=== PATIENT | male | born 1945 | race Caucasian/White ===

== ENCOUNTER → 2017-09-26 | Outpatient (CLI) | payer MEDICARE, BC ==
--- NOTE | 2017-09-26 12:17 | XR ---
EXAMINATION TYPE: XR chest 2V DATE OF EXAM: 09/26/2017 COMPARISON: NONE TECHNIQUE: PA and lateral views submitted. HISTORY: MRI clearance FINDINGS: The lungs are clear and there is no pneumothorax, pleural effusion, or focal pneumonia. Hyperinflat ion suggests COPD. There is a 7 mm nodule in the right apex. Postsurgical change involving the sternum. Hypertrophic and degenerative change of the spine. No diagnostic evidence of epicardial lead. Surgical clips in the mediastinum noted. Arthropathy of th e shoulders noted. Hypertrophic change of the spine noted. Small hiatal hernia noted. IMPRESSION: 1. No evidence of epicardial lead. 2. Vague nodularity right upper lobe CT of the chest is recommended
== END | disposition home or self-care (01) ==
LOC: RADXRMAIN 11:03
PROVIDERS: ATTEND Orthopaedic Surgery Sports Medicine
DX: R91.8 Other nonspecific abnormal finding of lung field (principal); M43.16 Spondylolisthesis, lumbar region; M47.817 Spondylosis without myelopathy or radiculopathy, lumbosacral region; M51.36 Other intervertebral disc degeneration, lumbar region; Z79.01 Long term (current) use of anticoagulants; Z96.642 Presence of left artificial hip joint; Z85.038 Personal history of other malignant neoplasm of large intestine
CPT/HCPCS: 71046

== ENCOUNTER → 2022-06-11 | Outpatient (CLI) | payer MEDICARE, BC ==
[2022-06-11 14:35] VITALS: BP 129/73; PULSE 72; RESP 18; TEMP 98.3
--- NOTE | 2022-06-11 14:52 | P.PAINPG ---
PQRS Measure Charge Sheet Comment: HISTORY OF PRESENT ILLNESS: 76 yr old male as a referral from Dr. Hummel presents today w severe and chronic LBP secondary to for evaluation. Pt states his pain is currently at 5/10 in intensity, constant, L>R LBP, squeezing sore in character w radiation towards the BLEs, R>L. Pain is provoked by bending/twisting or walking for 10 min or more. Pain is alleviated w [address] [facility], massage integrated w PT, medications (ASA products, muscle relaxers), sitting upright, repositioning and rest. PMH: CAD, Colon CA, Hyperlipidemia, HTN, OA, Anxiety PSH: Colon CA resection, Cervical Disc Protrusions, Cardiac Cath (2008), Triple ByPass (2008), BL Carotid Endarectomies, L Hip Replacement, Colonoscopy, Tonsillectomy, BL Cataract Resection w Lens Implants, Vasectomy, Circumcision SH: Hx of 60 pack/ yr tobacco use. Hx of Heavy ETOH use. No illicit drug use. and lives w spouse. Drives. FH: Fa- unknown. Mo- in her 70s due to a fall. All: [place] Meds: See list REVIEW OF ORGAN SYSTEMS: CONSTITUTIONAL: No fevers or chills. No recent weight loss. NEUROLOGICAL: + numbness and tingling along the distal extremities. No seizure disorders or headaches. MUSCULOSKELETAL: + pain PSYCHIATRIC: Denies current depression or suicidal thoughts. Physical Examinations : Constitutional : Cooperative , not in acute distress . Neurologic : Cranial nerve II to XII intact. No focal neurological deficits. Psychiatric : alert & oriented x 3. Matching mood & appropriate affect. Judgment & insight intact. Musculoskeletal : Cervical Spine Motor strength in the deltoid and biceps: Normal right side. Normal Left side Motor strength biceps and the wrist extensors: Normal right side . Normal left side Motor strength in the triceps muscle: Normal right side. Normal left side Deep tendon reflexes: Normal at the biceps. Normal at Brachioradialis. Normal at triceps Vertebral body tenderness to deep palpation over Cervical facet loading test: positive bilaterally Spurling test: positive bilaterally Neck distraction test: positive bilaterally Huma sign: positive bilaterally Lumbar spine Motor strength lower extremities ,thigh and legs 5/5 Right side , 5/5 Left side Deep tendon reflexes : Normal Knee Jerk. Normal Ankle Jerk Vertebral body tenderness over L5 Lumbar facet Loading Test: positive Right / positive Left Range of motion of the lumbar spine Flexion 30 degrees, extension 10 degrees Straight Leg Raise test: Left/ Right positive at degree Luigi test: positive right / positive left. Severe tenderness over the Sacroiliac joint on the Right / Left sides Gaenslen test: positive bilaterally Seated flexion test: positive bilaterally. Sacral spine : Severe tenderness over the Sacroiliac joint: right side / left side Range of motion: Flexion of the lumbar spine <60 degrees Range of motion: Extension of the lumbar spine <20 degrees Gaenslen's Test positive Michael's Test positive Luigi test: positive right side / left side Thigh Thrust Test Sacral Thrust Test Imaging: MRI without contrast of the lubmar spine form 05/16/22 reviwed Assessment/ Plan : Lumbar DDD, Lumbar Spondylosis Recommendation of KAILASH L5-S1. May need a series of injections, up to 3 within a 6 mo period, for optimal pain relief. Risks, benefits of procedure discussed and patient verbalized understanding. Admits to aspirin or anti- coagulant use and denies medical history of diabetes. Protocol for discontinuation/ continuation of medications rubia procedure discussed. All questions answered. I have spent greater than 30 minutes on patient care today. Dr Benítez was available by phone for the evaluation of this patient. The time was used to review the medical records including relevant urine studies and Prescription history (MAPs), review of the available imaging, evaluation and examination of the patient, coordination of care with the medical staff and if applicable referring physicians, as well as creation of the medical record PQRS Narrative: Smoking Status Former smoker Home Medications: Ambulatory Orders Multivit-Min/FA/Lycopen/Lutein [Centrum Silver Tablet] 1 tab PO DAILY 08/04/15 Tamsulosin HCl [Flomax] 0.4 mg PO DAILY 08/04/15 traMADol HCL [Ultram] 100 mg PO Q6HR PRN 08/04/15 Aspirin EC [Ecotrin Low Dose] 81 mg PO DAILY #30 tablet. 08/11/15 Atorvastatin [Lipitor] 80 mg PO DAILY #30 tab 08/11/15 Budesonide/Formoterol Fumarate [Symbicort 80-4.5 Mcg Inhaler] 2 puff INHALATION BID #1 inhaler 08/11/15 Clopidogrel [Plavix] 75 mg PO DAILY #30 tab 08/11/15 Ipratropium-Albuterol Nebulize [Duoneb 0.5 mg-3 mg/3 ml Soln] 3 ml INHALATION RT-QID #1 neb 08/11/15 Metoprolol Tartrate [Lopressor] 50 mg PO BID #60 tab 08/11/15 Nitroglycerin Sl Tabs [Nitrostat] 0.4 mg SUBLINGUAL Q5M PRN #25 tab 08/11/15 amLODIPine [Norvasc] 5 mg PO DAILY #30 tab 08/11/15 Acetaminophen-Codeine 300-30mg [Tylenol #3] 1 each PO Q6H PRN #20 tablet 08/24/15 Orphenadrine [Norflex] 100 mg PO Q12H #20 tablet.er 08/24/15 Controlled Substance Measures - Controlled Substance Measures Is patient prescribed a controlled substance at discharge?: No
== END ==
LOC: PNWHC3 12:19
PROVIDERS: ATTEND Specialist
DX: M48.062 Spinal stenosis, lumbar region with neurogenic claudication (principal); M51.36 Other intervertebral disc degeneration, lumbar region; M47.816 Spondylosis without myelopathy or radiculopathy, lumbar region; I25.10 Atherosclerotic heart disease of native coronary artery without angina pectoris; E78.5 Hyperlipidemia, unspecified; I10 Essential (primary) hypertension; M19.90 Unspecified osteoarthritis, unspecified site; F41.9 Anxiety disorder, unspecified; Z87.891 Personal history of nicotine dependence; Z88.5 Allergy status to narcotic agent
CPT/HCPCS: 99211

== ENCOUNTER → 2022-06-27 | Outpatient (CLI) | payer MEDICARE, BC ==
--- NOTE | 2022-06-27 14:41 | CT ---
EXAMINATION TYPE: CT chest wo con DATE OF EXAM: 06/27/2022 COMPARISON: 08/08/2015 HISTORY: pleural effusion CT DLP: 160 mGycm, Automated exposure control for dose reduction was used. CONTRAST: Performed injected with 0 mL of Isovue 300. TECHNIQUE: High-resolution CT chest Axial images were obtained at 1 mm thick sections. There are 10 mm thick skip sections. This will limit evaluation. Reconstructed images are reviewed on the computer in the coronal plane. FINDINGS: Portion of the thyroid visualized is normal. There is a small left pleural effusion present. This appears to be free flowing between prone and sup ine imaging. No right pleural effusion is evident. Pretracheal lymphadenopathy is present measuring 1.2 cm. Additional subcentimeter adenopathies in the aortopulmonic window and pretracheal space. Vascular calcifications within the aorta. No suspicious hilar adenopathy is identified. Emphysematous changes are present bilaterally. The ascending aorta diameter at the level of the main pulmonary artery is 4.1 cm. The main pulmonary artery diameter at the bifurcation is 2.[address] sections are obtained through the upper abdomen. Abdomen is essentially unremarkable. IMPRESSIONS: 1. Enlarged 1.2 cm pretracheal lymph node. 2. Free flowing small to moderate left pleural effusion 3. COPD
== END | disposition home or self-care (01) ==
LOC: RADCTMAIN 12:03
PROVIDERS: ATTEND Internal Medicine Critical Care Medicine
DX: J90 Pleural effusion, not elsewhere classified (principal); J44.9 Chronic obstructive pulmonary disease, unspecified; R59.0 Localized enlarged lymph nodes
CPT/HCPCS: 71250

== ENCOUNTER 2022-06-29 11:15 | Day surgery (SDC) | payer MEDICARE, BC ==
[~2022-06-29 11:15] MED LIST: SODIUM CHLORIDE 0.9% 500 ML 500 ML in EMPTY BAG 1 BAG IV PRN
[2022-06-29 11:53] VITALS: RESP 16; TEMP 98.2
--- NOTE | 2022-06-29 12:46 | P.PCN ---
Date of Procedure: 06/29/22 Preoperative Diagnosis: Right-sided pleural effusion Postoperative Diagnosis: Right-sided pleural effusion Procedure(s) Performed: Right-sided thoracentesis Anesthesia: local (done) Surgeon: Lotus Giordano Pathology: none sent Disposition: same day Operative Findings: A time out was performed and the chest x-ray was reviewed, the appropriate side was confirmed and marked. My hands were washed immediately prior to the procedure. I wore a surgical cap, mask with protective eyewear, sterile gown and sterile gloves throughout the procedure. The patient was prepped and draped in a sterile manner using chlorhexidine scrub after the appropriate level was percussed and confirmed by ultrasound. 1% lidocaine was used to anesthesize the skin, subcutaneous tissue, superior aspect of the rib periosteum and parietal pleura. A finder needle was then introduced over the superior aspect of the rib to locate the pleural fluid; 2colored fluid was aspirated at a depth of approximately 2 cm. A 10-blade scalpel was used to mumtaz the skin at the insertion site. The Sefx-t-Vhupaesq needle was then introduced through the skin incision into the pleural space using negative aspiration pressure and the red colometric indicator to confirm appropriate positioning of the needle. The thoracentesis catheter was then threaded without difficulty. 800 ml of turbid colored fluid was removed without difficulty. The catheter was then removed. No immediate complications were noted during the procedure. A post-procedure chest x-ray is pending at the time of this note. The fluid will be sent for studies. Estimated blood loss is 0cc
[2022-06-29 13:06] VITALS: BP 148/84; PULSE 84
--- NOTE | 2022-06-29 13:21 | XR ---
EXAMINATION TYPE: XR chest 1V portable DATE OF EXAM: 06/29/2022 1:01 PM COMPARISON: Chest radiographs from 06/27/2022, CT chest 07/14, ultrasound chest 06/29/2022. TECHNIQUE: XR chest 1V portable Frontal view of the chest. CLINICAL INDICATION:Male, 76 years old with history of post thoracentesis; FINDINGS: Lungs/Pleura: No sizable pneumothorax demonstrated. Small left pleural effusion with associated atele ctasis. Right basilar atelectasis. Increased lucency in the upper lobes bilaterally. Pulmonary vascularity: Unremarkable. Heart/mediastinum: Cardiomediastinal silhouette is prominent in size. Postoperative changes are pres ent in the mediastinum. Musculoskeletal: No acute osseous pathology. Midline sternotomy wires are noted and stable. IMPRESSION: 1. Small left pleural effusion with associated atelectasis. Right basal atelectasis. No pneumothorax . 2. COPD changes.
[2022-06-29 19:30] LABS: Glucose, BF Source Pleural Fluid; Glucose, Body Fluid 95 mg/dL; LDH, Body Fluid Source Pleural Fluid; T. Protein, Body Fluid Source Pleural Fluid; Total Protein, Body Fluid 4310 mg/dL
== END 2022-07-02 07:46 | disposition home or self-care (01) ==
LOC: PROCWHC3 11:15
PROVIDERS: ATTEND Internal Medicine Critical Care Medicine
DX: J90 Pleural effusion, not elsewhere classified (principal); F41.1 Generalized anxiety disorder; E78.5 Hyperlipidemia, unspecified; I73.9 Peripheral vascular disease, unspecified; N18.9 Chronic kidney disease, unspecified; D63.1 Anemia in chronic kidney disease; I65.29 Occlusion and stenosis of unspecified carotid artery; I73.00 Raynaud's syndrome without gangrene; F10.21 Alcohol dependence, in remission; J84.10 Pulmonary fibrosis, unspecified; M06.9 Rheumatoid arthritis, unspecified; Z85.038 Personal history of other malignant neoplasm of large intestine; M19.90 Unspecified osteoarthritis, unspecified site; I25.10 Atherosclerotic heart disease of native coronary artery without angina pectoris; Z95.1 Presence of aortocoronary bypass graft; J44.9 Chronic obstructive pulmonary disease, unspecified; Z87.891 Personal history of nicotine dependence; Z98.42 Cataract extraction status, left eye; Z98.41 Cataract extraction status, right eye; Z98.890 Other specified postprocedural states; Z88.5 Allergy status to narcotic agent; Z79.82 Long term (current) use of aspirin; Z79.899 Other long term (current) drug therapy; Z88.8 Allergy status to other drugs, medicaments and biological substances
CPT/HCPCS: 89050; 87070; 87205; 87075; 87116; 87206; 82945; 83615; 84157; 71045; 32554; J2001; 76604; 93970

== ENCOUNTER → 2022-06-29 | Outpatient (CLI) | payer MEDICARE, BC ==
--- NOTE | 2022-06-29 12:17 | US ---
EXAMINATION TYPE: US chest DATE OF EXAM: 06/29/2022 COMPARISON: XR, CT CLINICAL HISTORY: J90. Left pleural effusion. TECHNIQUE: Targeted ultrasound of the posterior lower left hemithorax EXAM MEASUREMENTS: Right Pleural Effusion pocket size: No fluid seen Left Pleural Effusion pocket size: Fluid appears complex with septations: 8.3 cm Left skin surface to fluid distance: 3.4 cm Right side NOT marked for possible thoracentesis outside the dept. Left side marked for possible thoracentesis outside the dept. Fluid appears x with septations, markin gs were done. Pulmonologists are able to review the images in the patient?s EMR. IMPRESSIONS: Left pleural effusion.
--- NOTE | 2022-06-29 12:28 | US ---
EXAMINATION TYPE: US venous doppler duplex LE DATE OF EXAM: 06/29/2022 10:55 AM COMPARISON: NONE CLINICAL HISTORY: R2242. R2241. No hx of DVT. Swelling within bilateral legs. SIDE PERFORMED: Bilateral TECHNIQUE: The lower extremity deep venous system is examined utilizing real time linear array sonog rakel with graded compression, doppler sonography and color-flow sonography. VESSELS IMAGED: Common Femoral Vein Deep Femoral Vein Greater Saphenous Vein * Femoral Vein Popliteal Vein Small Saphenous Vein * Proximal Calf Veins (* superficial vessels) Right Leg: No evidence of DVT in veins imaged. Left Leg: No evidence of DVT in veins imaged. IMPRESSION: 1. Bilateral lower extremity ultrasound negative for deep venous arthrosis.
== END | disposition home or self-care (01) ==
LOC: RADUSWWP 09:35
PROVIDERS: ATTEND Internal Medicine Critical Care Medicine
DX: J90 Pleural effusion, not elsewhere classified (principal)
CPT/HCPCS: 76604; 93970

== ENCOUNTER 2022-07-10 10:16 | Day surgery (SDC) | payer MEDICARE, BC ==
[~2022-07-10 10:16] MED LIST changes: +LACTATED RINGERS 1,000 ML IV SCH; -SODIUM CHLORIDE 0.9% 500 ML 500 ML in EMPTY BAG 1 BAG IV PRN
[2022-07-10 10:56] VITALS: TEMP 98.4
[2022-07-10] MEDS ORDERED: IOPAMIDOL M200 10 ML VIAL ONE (11:14)
[2022-07-10] MEDS ORDERED: TRIAMCINOLONE ACETONIDE 40 MG/ML 1 ML VIAL ONE (11:14)
[2022-07-10] MEDS ORDERED: ROPIVACAINE 5 MG/ML 20 ML AMPULE ONE (11:14)
--- NOTE | 2022-07-10 11:27 | P.PCN ---
Date of Procedure: 07/10/22 Surgeon: Shruthi Hwang Pathology: none sent Condition: stable Disposition: PACU Description of Procedure: PREOPERATIVE DIAGNOSIS: 1-Lumbar radiculopathy 2- Lumber Degenerative Disc Diseases. POSTOPERATIVE DIAGNOSIS: 1-Lumbar radiculopathy. 2-Lumbar Degenerative Disc Diseases PROCEDURE 1. Lumbar epidural steroid injection under fluoroscopic guidance at the L5-S1 level in the left paramedian approach. 2. Lumbar epidurogram. ANESTHESIA: Local only with 1% lidocaine EBL: Minimal PROCEDURE INDICATION: The patient with low back pain and radiculitis symptoms unresponsive to conservative treatment. Fluoroscopy was used to optimize visualization of the needle placement and to maximize safety. PROCEDURE DESCRIPTION / TECHNIQUE: The patient was seen and identified in the preoperative area. Risks, benefits, complications including but not limited to infections ,bleeding ,allergic reaction to the medications ,nerve damage and not complete pain relief , and alternatives were discussed with the patient. The patient agreed to proceed with the procedure and signed the consent. IV was started, and vital signs were stable. Patient was taken to the OR and time out was completed. The patient was placed in the prone position on procedure table and a pillow was placed under the abdomen to reduce lumbar lordosis. The lumbosacral area was prepped and draped in the usual sterile fashion with ChloraPrep.Patient was closely monitored during the procedure. Conscious sedation was used during the procedure to decrease patients anxiety. Vital signs were monitered during the entire p rocedure. Using anterior-posterior fluoroscopy, the L5-S1 interlaminar space was identified and the skin over this site was marked and then infiltrated with 1% lidocaine subcutaneously. Subsequently, a 20-gauge Tuohy epidural needle was inserted and advanced toward the epidural space using the Loss of resistance to air technique and guided by AP and lateral fluoroscopy. The correct needle position in the epidural space was verified with the injection of 1 mL of the water soluble contrast dye Omnipaque 180 contrast and observing an excellent epidurogram with the epidural spread of the dye, after negative aspiration for blood and CSF and in the absence of paresthesias. Again after negative aspiration, a 8 ml mixture containing 40 mg of Kenalog and 5 ml of preservative free Normal Saline, and 2 ml of preservative free Ropivacaine 0.5% solution was injected and a washout of epidurogram was seen. Needle was withdrawn intact, skin was cleansed, and bandages were applied. patient tolerated procedure well and was transferred to PACU in stable condition.A copy of the needle placement picture was saved to the fluoroscopy machine. COMPLICATIONS: None
[2022-07-10 11:32] VITALS: RESP 16
--- NOTE | 2022-07-10 11:41 | FL ---
EXAMINATION TYPE: FL guided pain mgmt statistic DATE OF EXAM: 07/10/2022 HISTORY: Fluoroscopy time 7 seconds of fluoroscopy provided. IMPRESSION: 1. Fluoroscopy time.
[2022-07-10 11:47] VITALS: BP 148/75; PULSE 68
== END 2022-07-10 11:53 | disposition home or self-care (01) ==
LOC: ORPAIN 10:16
PROVIDERS: ATTEND Anesthesiology
DX: M51.16 Intervertebral disc disorders with radiculopathy, lumbar region (principal)
CPT/HCPCS: 62323; J3301; Q9966; J2795

== ENCOUNTER 2022-08-21 08:55 | Day surgery (SDC) | payer MEDICARE, BC ==
[2022-08-21] MEDS ORDERED: LACTATED RINGERS 1,000 ML IV SCH (09:46)
[2022-08-21] MEDS ORDERED: LIDOCAINE 1% (10MG/ML) FOR IV START INTRADERMA PRN (09:46)
[2022-08-21 10:02] VITALS: RESP 16; TEMP 97.5
[2022-08-21] MEDS ORDERED: methylPREDNISolone ACETATE 40 MG/ML 1 ML VIAL ONE (10:04)
[2022-08-21] MEDS ORDERED: IOPAMIDOL M200 10 ML VIAL ONE (10:04)
--- NOTE | 2022-08-21 10:15 | P.PCN ---
Date of Procedure: 08/21/22 Procedure(s) Performed: PREOPERATIVE DIAGNOSIS: 1- Lumbar Degenerative Disc Diseases 2-Lumbar Radiculopathy. POSTOPERATIVE DIAGNOSIS: Same as preop diagnosis. PROCEDURE 1. Lumbar epidural steroid injection under fluoroscopic guidance at the L5-S1 level. (Fluoroscopy imaging was available in radiology department) 2. Lumbar epidurogram. ANESTHESIA: Local anesthesia with lidocaine 1% 3 mL only EBL: Minimal PROCEDURE INDICATION: The patient with low back pain and radiculitis symptoms unresponsive to conservative treatment. Fluoroscopy was used to optimize visualization of the needle placement and to maximize safety. PROCEDURE DESCRIPTION / TECHNIQUE: The patient was seen and identified in the preoperative area. Risks, benefits, complications including but not limited to infections ,bleeding ,allergic reaction to the medications ,nerve damage and not complete pain releife , and alternatives were discussed with the patient. The patient agreed to proceed with the procedure and signed the consent. IV was started, and vital signs were stable. Patient was taken to the OR and time out was completed. The patient was placed in the prone position on procedure table and a pillow was placed under the abdomen to reduce lumbar lordosis. The lumbosacral area was prepped and draped in the usual sterile fashion.ere closely monitored during the procedure. Vital signs was monitered during the entire procedure. Using anterior-posterior fluoroscopy, the L5-S1 interlaminar space was identified and the skin over this site was marked and then infiltrated with 1% lidocaine subcutaneously. Subsequently, a 20-gauge Tuohy epidural needle was inserted and advanced toward the epidural space using the ``Loss of resistance technique and guided by AP and lateral fluoroscopy. The correct needle position in the epidural space was verified with the injection of 2 mL of the water soluble contrast dye Isovue 200 contrast and observing an excellent epidurogram with the epidural spread of the dye, after negative aspiration for blood and CSF and in the absence of paresthesias. Again after negative aspiration, a 6 ml mixture containing 40 mg of Depo-medrol ( Preservetive Free ), and 2 ml of preservative free Normal Saline, and 2 ml of preservative free lidocaine 1% solution was injected and a washout of epidurogram was seen. Needle was withdrawn intact, skin was cleansed, and bandages were applied. COMPLICATIONS: None DISPOSITION / PLANS: The patient was placed in a supine position and transferred to the recovery area in a stable condition for observation. There was no evidence of lower extremity motor or sensory deficit after the procedure. Patient was discharged from the recovery room after meeting discharge criteria. Home discharge instructions were given to the patient by the staff. The patient was reexamined prior to discharge. The patient will schedule a follow up in the clinic in 2-4 weeks.
[2022-08-21 10:24] VITALS: PULSE 54
--- NOTE | 2022-08-21 10:28 | FL ---
EXAMINATION TYPE: FL guided pain mgmt statistic DATE OF EXAM: 08/21/2022 CLINICAL HISTORY: Low back pain. TECHNIQUE: Fluoroscopy. COMPARISON: None. FINDINGS: Fluoroscopic guidance was provided during pain relief procedure performed by Dr. Benítez . A total of 2 seconds of fluoroscopic time was utilized during the procedure and 1 spot images are acquired. Single image acquired shows needle localization at L5 level. IMPRESSION: As Above.
[2022-08-21 10:37] VITALS: BP 129/65
== END 2022-08-21 10:45 | disposition home or self-care (01) ==
LOC: ORPAIN 08:55
PROVIDERS: ATTEND Specialist
DX: M51.16 Intervertebral disc disorders with radiculopathy, lumbar region (principal)
CPT/HCPCS: 62323; J1030; Q9966

== ENCOUNTER → 2022-09-06 | Outpatient (CLI) | payer MEDICARE, BC ==
[2022-09-06 13:28] VITALS: BP 160/88; PULSE 55; RESP 18; TEMP 98.5
--- NOTE | 2022-09-06 14:34 | P.PAINPG ---
PQRS Measure Charge Sheet Comment: A 76 yr old male w at side with a history of severe and chronic low back pain secondary to lumbar DDD and spondylosis with facet arthropathy without myelopathy presents today for evaluation s/p KAILASH L5-S1. Pt states she experienced 70 % pain relief x 2 wks s/p procedure. Pain level is currently at 5 /10 in intensity, constant, localized in the upper R lumbar spine, grinding in character without radiation. Pain is provoked by bending, lifting. Pain is alleviated with PT in the past, home exercise regimen, chiropractic treatments in the past, medications (Tylenol Arthritis), inactivity and rest. Interventional pain procedures completed include KAILASH L5-S1 x2 Patient is currently on Tylenol Arthritis Patient denies any side effects of the medication(s), denies excessive drowsiness or sleepiness, denies suicidal ideation and reports that the current pain medication is helping to control the pain and improve activities of daily living. Patient denies any motor or sensory deficits. Patient denies any fever or night sweats, denies any change in the bowel movements or urination. Physical Examination: -Constitutional: Cooperative. Not in acute distress . - Neurologic: Cranial nerve II to XII intact. No focal neurological deficits. - Psychatric: Alert & oriented x 3. Matching mood & appropriate affect. Judgment and insight intact. - Musculoskeletal: Cervical spine: Muscle bulk/ tone/ strength in the bilateral upper extremities normal Vertebral body tenderness to palpation over Spurling test positive Distraction test positive Facet loading test positive Thoracic spine Muscle bulk / tone/ strength in the bilateral paraspinal muscles normal Vertebral body tender to palpation over Facet loading test positive Lumbar spine: Motor bulk/ tone/ strength lower extremities , thigh and legs : 5/5 Deep tendon reflexes : Normal Knee Jerk. Normal Ankle Jerk . Vertebral body tenderness to palpation over L4 Lumbar Facet Loading Test positive Straight Leg Raise: positive at 30 degrees right side/ left side Gaenslen's Test positive Sacral spine : Severe tenderness over the Sacroiliac joint: right side / left side Range of motion: Flexion of the lumbar spine <60 degrees Range of motion: Extension of the lumbar spine <20 degrees Gaenslen's Test positive Luigi test: positive right side / left side Thigh Thrust Test Sacral Thrust Test Assessment and plan: Chronic low back pain secondary to lumbar degenerative disc disease, spondylosis with facet arthropathy without myelopathy Recommendation of KAILASH L4-L5. May need a series of injections, up to 3 within a 6 mo period for optimal pain relief. Risks, benefits of procedure discussed and pt verbalized understanding. Denies anticoagulant use or medical history of diabetes. All patient questions answered I have spent less than 30 minutes on patient care today. Dr Benítez was available by phone for the evaluation of this patient. The time was used to review the medical records including relevant urine studies and Prescription history (MAPs), review of the available imaging, evaluation and examination of the patient, coordination of care with the medical staff and if applicable referring physicians, as well as creation of the medical record PQRS Narrative: Smoking Status Former smoker Hx Alcohol Use (MH) No Home Medications: Ambulatory Orders Aspirin EC [Ecotrin Low Dose] 81 mg PO DAILY #30 tablet. 08/11/15 Metoprolol Tartrate [Lopressor] 50 mg PO BID #60 tab 08/11/15 Atorvastatin [Lipitor] 40 mg PO HS 06/29/22 amLODIPine [Norvasc] 10 mg PO DAILY 06/29/22 calcitrioL [Calcitriol] 0.25 mcg PO DIRECTED 06/29/22 hydrALAZINE HCL 25 mg PO TID 06/29/22 hydroCHLOROthiazide 25 mg PO TID 06/29/22 Losartan [Cozaar] 25 mg PO DAILY 07/10/22 Mirtazapine 15 mg PO HS PRN 08/21/22 Controlled Substance Measures - Controlled Substance Measures Is patient prescribed a controlled substance at discharge?: No
== END ==
LOC: PNWHC3 12:36
PROVIDERS: ATTEND Specialist
DX: M47.816 Spondylosis without myelopathy or radiculopathy, lumbar region (principal); M51.36 Other intervertebral disc degeneration, lumbar region; Z88.5 Allergy status to narcotic agent; Z87.891 Personal history of nicotine dependence
CPT/HCPCS: 99211

== ENCOUNTER 2022-10-11 10:18 | Day surgery (SDC) | payer MEDICARE, BC ==
[~2022-10-11 10:18] MED LIST changes: +LIDOCAINE 1% (10MG/ML) FOR IV START INTRADERMA PRN
[2022-10-11 10:47] VITALS: TEMP 97.7
[2022-10-11] MEDS ORDERED: methylPREDNISolone ACETATE 40 MG/ML 1 ML VIAL ONE (11:29)
[2022-10-11] MEDS ORDERED: IOPAMIDOL M200 10 ML VIAL ONE (11:29)
--- NOTE | 2022-10-11 11:39 | P.PCN ---
Date of Procedure: 10/11/22 Procedure(s) Performed: PREOPERATIVE DIAGNOSIS: 1- Lumbar Degenerative Disc Diseases 2-Lumbar Radiculopathy. 3-lumbar spondylosis with lumbar facet arthropathy POSTOPERATIVE DIAGNOSIS: Same as preop diagnosis. PROCEDURE 1. Lumbar epidural steroid injection under fluoroscopic guidance at the L4-5 level. (Fluoroscopy imaging was available in radiology department) 2. Lumbar epidurogram. ANESTHESIA: Local anesthesia with lidocaine 1% 3 mL only EBL: Minimal PROCEDURE INDICATION: The patient with low back pain and radiculitis symptoms unresponsive to conservative treatment. Fluoroscopy was used to optimize visualization of the needle placement and to maximize safety. PROCEDURE DESCRIPTION / TECHNIQUE: The patient was seen and identified in the preoperative area. Risks, benefits, complications including but not limited to infections ,bleeding ,allergic reaction to the medications ,nerve damage and not complete pain releife , and alternatives were discussed with the patient. The patient agreed to proceed with the procedure and signed the consent., and vital signs were stable. Patient was taken to the OR and time out was completed. The patient was placed in the prone position on procedure table and a pillow was placed under the abdomen to reduce lumbar lordosis. The lumbosacral area was prepped and draped in the usual sterile fashion.ere closely monitored during the procedure. Vital signs was monitered during the entire procedure. Using anterior-posterior fluoroscopy, the L4-5 interlaminar space was identified and the skin over this site was marked and then infiltrated with 1% lidocaine subcutaneously. Subsequently, a 20-gauge Tuohy epidural needle was inserted and advanced toward the epidural space using the ``Loss of resistance technique and guided by AP and lateral fluoroscopy. The correct needle position in the epidural space was verified with the injection of 2 mL of the water soluble contrast dye Isovue 200 contrast and observing an excellent epidurogram with the epidural spread of the dye, after negative aspiration for blood and CSF and in the absence of paresthesias. Again after negative aspiration, a 6 ml mixture containing 40 mg of Depo-medrol ( Preservetive Free ), and 2 ml of preservative free Normal Saline, and 2 ml of preservative free lidocaine 1% solution was injected and a washout of epidurogram was seen. Needle was withdrawn intact, skin was cleansed, and bandages were applied. COMPLICATIONS: None DISPOSITION / PLANS: The patient was placed in a supine position and transferred to the recovery area in a stable condition for observation. There was no evidence of lower extremity motor or sensory deficit after the procedure. Patient was discharged from the recovery room after meeting discharge criteria. Home discharge instructions were given to the patient by the staff. The patient was reexamined prior to discharge. The patient will schedule a follow up in the clinic in 2-4 weeks.
[2022-10-11 11:47] VITALS: RESP 20
[2022-10-11 12:01] VITALS: BP 175/70; PULSE 63
--- NOTE | 2022-10-11 12:01 | FL ---
EXAMINATION TYPE: FL guided pain mgmt statistic DATE OF EXAM: 10/11/2022 HISTORY: Fluoroscopy time 1 seconds of fluoroscopy provided. IMPRESSION: 1. Fluoroscopy time.
== END 2022-10-11 12:02 | disposition home or self-care (01) ==
LOC: ORPAIN 10:18
PROVIDERS: ATTEND Specialist
DX: M51.16 Intervertebral disc disorders with radiculopathy, lumbar region (principal); M47.26 Other spondylosis with radiculopathy, lumbar region; Z88.8 Allergy status to other drugs, medicaments and biological substances
CPT/HCPCS: 62323; J1030; Q9966

== ENCOUNTER → 2023-10-07 | Outpatient (CLI) | payer MEDICARE, BC ==
[2023-10-07 15:51] LABS: Basophils # (A) 0.02 X 10*3/uL (0.00-0.10); Basophils % (A) 0.4 %; Eosinophils # (A) 0.15 X 10*3/uL (0.04-0.35); Eosinophils % (A) 2.8 %; HGB 12.2 g/dL (13.0-17.0); Lymphocytes # (A) 0.61 X 10*3/uL (0.90-5.00); Lymphocytes % (A) 11.6 %; MCH 29.5 pg (27.0-32.0); MCHC 30.5 g/dL (32.0-37.0); MCV 96.6 FL (80.0-97.0); Mean Platelet Volume 10.6 FL (9.5-12.2); Monocytes # (A) 0.68 X 10*3/uL (0.20-1.00); Monocytes % (A) 12.9 %; NRBC Per 100 WBC 0 X 10*3/uL (0.00-0.01); Neutrophils # (A) 3.79 X 10*3/uL (1.80-7.70); Neutrophils % (A) 71.7 %; Platelet Count 209 X 10*3/uL (140-440); RBC 4.14 X 10*6/uL (4.40-5.60); RDW 15.5 % (11.5-14.5); WBC 5.28 X 10*3/uL (4.50-10.00)
[2023-10-07 16:17] LABS: Appearance,Urine Clear (Clear); Bilirubin,Urine Negative (Negative); Blood,Urine Negative (Negative); Color,Urine Yellow (Yellow); Ketones,Urine Negative (Negative); Nitrite,Urine Negative (Negative); Specific Gravity,Urine 1.015 (1.001-1.030); Urobilinogen,Urine 0.2 E.U./DL
[2023-10-07 16:25] LABS: Bacteria,Urine None Seen (None Seen)
[2023-10-07 16:27] LABS: % Iron Saturation 21.22 (15.00-50.00); Iron 52 UG/DL (65-175); Magnesium 1.8 mg/dL (1.5-2.4); Phosphorus 3.4 mg/dL (2.4-5.1); Total Iron Binding Capacity 245 UG/DL (228-460); Uric Acid 7.7 mg/dL (3.7-8.7)
[2023-10-07 16:43] LABS: BUN/Creat Ratio 14.55 Ratio (12.00-20.00); Blood Urea Nitrogen 45.1 mg/dL (9.0-27.0); Calcium 9.2 mg/dL (8.7-10.3); Carbon Dioxide 23.6 mmol/L (21.6-31.8); Chloride 110 mmol/L (96-109); Glucose 93 mg/dL (70-110); Sodium 145 mmol/L (135-145)
[2023-10-07 16:44] LABS: Albumin 3.7 g/dL (3.8-4.9)
[2023-10-07 18:27] LABS: Urine Creatinine 77.3 mg/dL (39.0-259.0)
== END | disposition home or self-care (01) ==
LOC: LABWHC1 12:45
PROVIDERS: ATTEND Internal Medicine Nephrology
DX: E55.9 Vitamin D deficiency, unspecified (principal); N25.81 Secondary hyperparathyroidism of renal origin; N18.32 Chronic kidney disease, stage 3b; D63.1 Anemia in chronic kidney disease; N39.0 Urinary tract infection, site not specified; M10.9 Gout, unspecified; R80.9 Proteinuria, unspecified
CPT/HCPCS: 36415; 80048; 81001; 82040; 82043; 82306; 82570; 82728; 83540; 83550; 83735; 83970; 84100; 84550; 85025

== ENCOUNTER 2023-11-20 12:56 | Emergency (ER) | payer MEDICARE, BC ==
--- NOTE | 2023-11-20 13:10 | ED ---
General Adult HPI - General Source: patient, RN notes reviewed Mode of arrival: ambulatory Limitations: no limitations <J Luis Everett - Last Filed: 11/20/23 13:08> - History of Present Illness Onset/Timin -: week(s) Quality: other (Tightness) Consistency: constant Improves with: none Worsens with: none Associated Symptoms: cough, other (Orthopnea) Treatments Prior to Arrival: none <Tera Thomas - Last Filed: 11/27/23 08:26> - General Chief complaint: Shortness of Breath Stated complaint: SOB, Chest Discomfort from it Time Seen by Provider: 11/20/23 13:01 - History of Present Illness Initial comments: 77-year-old male presents emergency department from urgent care chief complaint of shortness of breath. Patient states been having creasing shortness of breath over the last 1 week. He does have a history of COPD states he is old so had pleural effusion which has had belt cutter drainage in the past. Patient states he had an x-ray outpatient and showing fluid on his lung. Patient states that his pulse ox was in the 80s. Patient states it is improved when he sits down and rest. He states he has some chest tightness. Denies fevers or chills. (J Luis Everett) - Related Data Home Medications Medication Instructions Recorded Confirmed Atorvastatin [Lipitor] 40 mg PO HS 06/29/22 11/10/22 amLODIPine [Norvasc] 10 mg PO DAILY 06/29/22 11/10/22 calcitrioL 0.25 mcg PO MOWE 06/29/22 11/10/22 hydrALAZINE HCL 25 mg PO TID 06/29/22 11/10/22 hydroCHLOROthiazide 25 mg PO DAILY 06/29/22 11/10/22 Losartan [Cozaar] 25 mg PO DAILY 07/10/22 11/10/22 Albuterol Inhaler [Ventolin Hfa 2 puff INHALATION RT-Q4H PRN 11/10/22 11/10/22 Inhaler] Ipratropium-Albuterol Nebulize 3 ml INHALATION RT-Q6H PRN 11/10/22 11/10/22 [Duoneb 0.5 mg-3 mg/3 ml Soln] Latanoprost [Latanoprost 0.005%] 1 drop BOTH EYES DAILY 11/10/22 11/10/22 Mirtazapine 30 mg PO HS 11/10/22 11/10/22 Previous Rx's Medication Instructions Recorded Aspirin EC [Ecotrin Low Dose] 81 mg PO DAILY #30 tablet. 08/11/15 Metoprolol Tartrate [Lopressor] 50 mg PO BID #60 tab 08/11/15 Allergies Allergy/AdvReac Type Severity Reaction Status Date / Time hydrocodone Allergy Unknown Verified 11/20/23 13:04 Review of Systems ROS Other: All systems not noted in ROS Statement are negative. <J Luis Everett - Last Filed: 11/20/23 13:08> ROS Other: All systems not noted in ROS Statement are negative. <Tera Thomas - Last Filed: 11/27/23 08:26> ROS Statement: Those systems with pertinent positive or pertinent negative responses have been documented in the HPI. Past Medical History Past Medical History: Coronary Artery Disease (CAD), Cancer, Hyperlipidemia, Hypertension Additional Past Medical History / Comment(s): colon CA with sx, arthritis bilateral wrists, hand, back pain, "spot on lung" pt thinks it is his R lung that Dr. Giordano is watching, sinus problems, 4 bulging cervical discs, bilateral occasional tingling in hands, L arm decreased muscle tone and strength. History of Any Multi-Drug Resistant Organisms: None Reported Past Surgical History: Bowel Resection, Heart Catheterization, Joint Replac ement, Tonsillectomy Additional Past Surgical History / Comment(s): CCath 2008, triple bypass 2008, carotid endartectomies bilateral, left hip replacement, colon resection, co lonoscopy, cyst removed from tail bone as a child, bilateral cataract removal with lens implants, benign skin lesions removed from face and L arm, vasectomy, circumcism. Past Anesthesia/Blood Transfusion Reactions: No Reported Reaction Past Psychological History: Anxiety Smoking Status: Former smoker - Past Family History Father History Unknown: Yes Family Medical History: Unable to Obtain Additional Family Medical History / Comment(s): Pt never knew his father. Mother Family Medical History: No Reported History Additional Family Medical History / Comment(s): Mother was healthy. She in her 70's as a complication of a fall. <J Luis Everett - Last Filed: 11/20/23 13:08> General Exam Limitations: no limitations <J Luis Everett - Last Filed: 11/20/23 13:08> Limitations: no limitations General appearance: alert, in no apparent distress Head exam: Present: atraumatic, normocephalic Eye exam: Present: normal appearance. Absent: scleral icterus, conjunctival injection ENT exam: Present: normal oropharynx Respiratory exam: Present: wheezes, rales (Bilateral bases). Absent: respiratory distress, rhonchi, stridor, accessory muscle use Cardiovascular Exam: Present: regular rate, normal rhythm, normal heart sounds. Absent: systolic murmur, diastolic murmur, rubs, gallop GI/Abdominal exam: Present: soft. Absent: distended, tenderness, guarding, rebound, rigid, mass Extremities exam: Present: normal inspection, normal capillary refill, pedal edema. Absent: calf tenderness Back exam: Present: normal inspection. Absent: CVA tenderness (R), CVA tenderness (L) Neurological exam: Present: alert Skin exam: Present: warm, dry, intact, normal color. Absent: rash <Tera Thomas - Last Filed: 11/27/23 08:26> - General Exam Comments Initial Comments: Visual Physical Exam Vital signs reviewed General: Well-appearing, nontoxic, no acute distress. Head: Normocephalic, atraumatic Eyes: PERRLA, EOMI ENT: Airway patent Chest: Nonlabored breathing Skin: No visual rash, normal skin tone Neuro: Alert and oriented 3 Musculoskeletal: No gross abnormalities (J Luis Everett) Course Vital Signs 11/20/23 11/20/23 11/20/23 12:58 16:23 16:33 Temperature 97.7 F Pulse Rate 62 60 Respiratory 20 22 Rate Blood Pressure 198/66 226/106 O2 Sat by Pulse 95 91 L 88 L Oximetry 11/20/23 11/20/23 11/20/23 16:34 16:43 16:51 Temperature Pulse Rate 72 74 Respiratory Rate Blood Pressure O2 Sat by Pulse 97 Oximetry 11/20/23 11/20/23 16:57 17:28 Temperature Pulse Rate 64 Respiratory 18 Rate Blood Pressure 178/84 149/66 O2 Sat by Pulse 92 L Oximetry Medical Decision Making <J Luis Everett - Last Filed: 11/20/23 13:08> - Lab Data Result diagrams: 11/20/23 13:10 11/20/23 13:10 <Tera Thomas - Last Filed: 11/27/23 08:26> - Medical Decision Making I completed the quick note portion of this chart signed J Luis Everett PA-C (J Luis Everett) This patient is a 77-year-old man who presents with shortness of breath and some orthopnea which has been getting progressively worse over the past 1 week. The patient's clinical exam consistent with some degree of congestive heart failure superimposed on his underlying COPD. Discussed admission with the patient, but at this point he would prefer to try course of outpatient. We discussed taking increased diuretic and that he must return here if there is no improvement by 1 to 2 days of treatment or if he experiences any worsening in the interval. Was pt. sent in by a medical professional or institution (PAULO Thompson, [employer]ER, urgent care, hospital, or retirement...) When possible be specific @ -Patient was advised to come from urgent care for further evaluation Did you speak to anyone other than the patient for history (EMS, parent, family, police, friend...)? What history was obtained from this source @ -[No] Did you review nursing and triage notes (agree or disagree)? Why? @ -[I reviewed and agree with nursing and triage notes] Were old charts reviewed (outside hosp., previous admission, EMS record, old EKG, old radiological studies, urgent care reports/EKG's, retirement records)? Report findings @ -[No old charts were reviewed] Differential Diagnosis (chest pain, altered mental status, abdominal pain women, abdominal pain men, vaginal bleeding, weakness, fever, dyspnea, syncope, headache, dizziness, GI bleed, back pain, seizure, CVA, palpatations, mental health, musculoskeletal)? @ -Differential Dyspnea: Coronary syndrome, arrhythmia, tamponade, asthma, COPD, pulmonary embolism, pneumonia, pneumothorax, pulmonary effusion, anaphylaxis, diabetic ketoacidosis, flailed chest, pulmonary contusion, diaphragmatic rupture, anemia, neuromuscular, this is not meant to be an all-inclusive list. EKG interpreted by me (3pts min.). @ -[As above] X-rays interpreted by me (1pt min.). @ -[None done] CT interpreted by me (1pt min.). @ -[None done] U/S interpreted by me (1pt. min.). @ -[None done] What testing was considered but not performed or refused? (CT, X-rays, U/S, labs)? Why? @ -[None] What meds were considered but not given or refused? Why? @ -[None] Did you discuss the management of the patient with other professionals (professionals i.e. , PA, [employer]ACER, lab, RT, psych nurse, sr. social media & mobile manager, director public service, teacher, chief lifestyle officer, heel caser)? Give summary @ -[No] Was smoking cessation discussed for >3mins.? @ -[No] Was critical care preformed (if so, how long)? @ -[No] Were there social determinants of health that impacted care today? How? (Homelessness, low income, unemployed, alcoholism, drug addiction, transportation, low edu. Level, literacy, decrease access to med. care, retirement, rehab)? @ -[No] Was there de-escalation of care discussed even if they declined (Discuss DNR or withdrawal of care, Hospice)? DNR status @ -[No] What co-morbidities impacted this encounter? (DM, HTN, Smoking, COPD, CAD, Cancer, CVA, ARF, Chemo, Hep., AIDS, mental health diagnosis, sleep apnea, morbid obesity)? @ -[COPD, CHF Was patient admitted / discharged? Hospital course, mention meds given and route, prescriptions, significant lab abnormalities, going to OR and other pertinent info. @ -[See above Undiagnosed new problem with uncertain prognosis? @ -[No] Drug Therapy requiring intensive monitoring for toxicity (Heparin, Nitro, Insulin, Cardizem)? @ -[No] Were any procedures done? @ -[No] Diagnosis/symptom? @ -[Acute dyspnea CHF exacerbation Acute, or Chronic, or Acute on Chronic? @ -[Acute dyspnea Acute on chronic CHF Uncomplicated (without systemic symptoms) or Complicated (systemic symptoms)? @ -[Uncomplicated Side effects of treatment? @ -[No] Exacerbation, Progression, or Severe Exacerbation? @ -[No] Poses a threat to life or bodily function? How? (Chest pain, [place], [place], pneumonia, PE, COPD, DKA, ARF, appy, cholecystitis, CVA, Diverticulitis, Homicidal, Suicidal, threat to staff... and all critical care pts) @ -[Yes, there is some risk of worsening and developing respiratory failure, therefore patient to have close follow-up and return parameters (Tera Thomas) - Lab Data Lab Results 11/20/23 11/20/23 11/20/23 Range/Units 13:10 13:10 13:10 WBC 6.3 (3.8-10.6) k/uL RBC 3.83 L (4.30-5.90) m/uL Hgb 11.7 L (13.0-17.5) gm/dL Hct 37.9 L (39.0-53.0) % MCV 99.0 (80.0-100.0) fL MCH 30.6 (25.0-35.0) pg MCHC 30.9 L (31.0-37.0) g/dL RDW 15.0 (11.5-15.5) % Plt Count 172 (150-450) k/uL MPV 9.1 Neutrophils % 75 % Lymphocytes % 12 % Monocytes % 6 % Eosinophils % 5 % Basophils % 1 % Neutrophils # 4.7 (1.3-7.7) k/uL Lymphocytes # 0.8 L (1.0-4.8) k/uL Monocytes # 0.4 (0-1.0) k/uL Eosinophils # 0.3 (0-0.7) k/uL Basophils # 0.0 (0-0.2) k/uL Hypochromasia Marked Macrocytosis Slight PT 11.2 (10.0-12.5) sec INR 1.0 (<1.2) APTT 25.3 (22.0-30.0) sec Sodium 143 (137-145) mmol/L Potassium 4.6 (3.5-5.1) mmol/L Chloride 114 H (98-107) mmol/L Carbon Dioxide 22 (22-30) mmol/L Anion Gap 7 mmol/L BUN 49 H (9-20) mg/dL Creatinine 3.10 H (0.66-1.25) mg/dL Est GFR (CKD-EPI)AfAm 21 (>60 ml/min/1.73 sqM) Est GFR (CKD-EPI)NonAf 18 (>60 ml/min/1.73 sqM) Glucose 72 L (74-99) mg/dL Plasma Lactic Acid Bobby (0.7-2.0) mmol/L Calcium 8.3 L (8.4-10.2) mg/dL Magnesium 1.9 (1.6-2.3) mg/dL Total Bilirubin 0.5 (0.2-1.3) mg/dL AST 37 (17-59) U/L ALT 28 (4-49) U/L Alkaline Phosphatase 118 (38-126) U/L Troponin I (0.000-0.034) ng/mL NT-Pro-B Natriuret Pep 8010 pg/mL Total Protein 5.9 L (6.3-8.2) g/dL Albumin 3.5 (3.5-5.0) g/dL 11/20/23 11/20/23 Range/Units 13:10 13:10 WBC (3.8-10.6) k/uL RBC (4.30-5.90) m/uL Hgb (13.0-17.5) gm/dL Hct (39.0-53.0) % MCV (80.0-100.0) fL MCH (25.0-35.0) pg MCHC (31.0-37.0) g/dL RDW (11.5-15.5) % Plt Count (150-450) k/uL MPV Neutrophils % % Lymphocytes % % Monocytes % % Eosinophils % % Basophils % % Neutrophils # (1.3-7.7) k/uL Lymphocytes # (1.0-4.8) k/uL Monocytes # (0-1.0) k/uL Eosinophils # (0-0.7) k/uL Basophils # (0-0.2) k/uL Hypochromasia Macrocytosis PT (10.0-12.5) sec INR (<1.2) APTT (22.0-30.0) sec Sodium (137-145) mmol/L Potassium (3.5-5.1) mmol/L Chloride (98-107) mmol/L Carbon Dioxide (22-30) mmol/L Anion Gap mmol/L BUN (9-20) mg/dL Creatinine (0.66-1.25) mg/dL Est GFR (CKD-EPI)AfAm (>60 ml/min/1.73 sqM) Est GFR (CKD-EPI)NonAf (>60 ml/min/1.73 sqM) Glucose (74-99) mg/dL Plasma Lactic Acid Bobby 0.9 (0.7-2.0) mmol/L Calcium (8.4-10.2) mg/dL Magnesium (1.6-2.3) mg/dL Total Bilirubin (0.2-1.3) mg/dL AST (17-59) U/L ALT (4-49) U/L Alkaline Phosphatase (38-126) U/L Troponin I 0.034 (0.000-0.034) ng/mL NT-Pro-B Natriuret Pep pg/mL Total Protein (6.3-8.2) g/dL Albumin (3.5-5.0) g/dL Disposition <J Luis Everett - Last Filed: 11/20/23 13:08> Is patient prescribed a controlled substance at d/c from ED?: No <Tera Thomas - Last Filed: 11/27/23 08:26> Clinical Impression: CHF (congestive heart failure), HTN (hypertension) Disposition: HOME SELF-CARE Condition: Fair Instructions (If sedation given, give patient instructions): Hypertension (ED), Shortness of Breath (ED) Additional Instructions: As we discussed, take extra diuretic (hydrochlorothiazide ) next 3 days. Referrals: Rajeev Hummel MD [Primary Care Provider] - 1-2 days Lotus Giordano MD [STAFF PHYSICIAN] - 1-2 days
[2023-11-20 13:14] VITALS: TEMP 97.7
[2023-11-20 13:34] LABS: Basophils % (A) 1 %; Eosinophils # (A) 0.3 k/uL (0-0.7); Eosinophils % (A) 5 %; HCT 37.9 % (39.0-53.0); HGB 11.7 gm/dL (13.0-17.5); Hypochromasia Marked; Lymphocytes # (A) 0.8 k/uL (1.0-4.8); Lymphocytes % (A) 12 %; MCH 30.6 pg (25.0-35.0); MCHC 30.9 g/dL (31.0-37.0); Macrocytosis Slight; Mean Platelet Volume 9.1; Monocytes # (A) 0.4 k/uL (0-1.0); Monocytes % (A) 6 %; Neutrophils # (A) 4.7 k/uL (1.3-7.7); Neutrophils % (A) 75 %; Platelet Count 172 k/uL (150-450); RBC 3.83 m/uL (4.30-5.90); WBC 6.3 k/uL (3.8-10.6)
[2023-11-20 13:46] LABS: Partial Thromboplastin Time 25.3 sec (22.0-30.0); Prothrombin Time 11.2 sec (10.0-12.5)
[2023-11-20 13:54] LABS: ALT 28 U/L (4-49); AST 37 U/L (17-59); African American GFR (CKD) 21 (>60 ml/min/1.73 sqM); Albumin 3.5 g/dL (3.5-5.0); Alkaline Phosphatase 118 U/L (38-126); Anion Gap 7 mmol/L; Blood Urea Nitrogen 49 mg/dL (9-20); Calcium 8.3 mg/dL (8.4-10.2); Carbon Dioxide 22 mmol/L (22-30); Chloride 114 mmol/L (98-107); Glucose 72 mg/dL (74-99); Magnesium 1.9 mg/dL (1.6-2.3); Non-African American GFR(CKD) 18 (>60 ml/min/1.73 sqM); Potassium 4.6 mmol/L (3.5-5.1); Sodium 143 mmol/L (137-145); Total Bilirubin 0.5 mg/dL (0.2-1.3); Total Protein 5.9 g/dL (6.3-8.2)
[2023-11-20 14:01] LABS: NT-Pro-B-Type Natriuretic Pept 8010 pg/mL
[2023-11-20] MEDS: hydrALAZINE HCL 20 MG/ML 1 ML VIAL IVP STA ×2 (16:28→17:06)
[2023-11-20] MEDS: NITROGLYCERIN OINT 1 INCH/GM PACKET TOPICAL STA (16:32)
[2023-11-20] MEDS: ALBUTEROL NEBULIZED 2.5 MG/3 ML INHALATION STA (16:41)
[2023-11-20 17:55] VITALS: BP 149/66; PULSE 64; RESP 18
== END 2023-11-20 17:47 | disposition home or self-care (01) ==
LOC: EC 12:56
DX: I11.0 Hypertensive heart disease with heart failure (principal); I50.9 Heart failure, unspecified; I45.10 Unspecified right bundle-branch block; I25.10 Atherosclerotic heart disease of native coronary artery without angina pectoris; E78.5 Hyperlipidemia, unspecified; J44.9 Chronic obstructive pulmonary disease, unspecified; F41.9 Anxiety disorder, unspecified; Z79.899 Other long term (current) drug therapy; Z87.891 Personal history of nicotine dependence; Z88.5 Allergy status to narcotic agent
CPT/HCPCS: 36415; 94640; 93005; 83880; 80053; 83605; 83735; 84484; 85025; 85610; 85730; 99285; 96374; 96376; J0360

== ENCOUNTER → 2024-03-19 | Outpatient (CLI) | payer MEDICARE, BC ==
[2024-03-19 14:27] VITALS: BP 159/72; PULSE 57; RESP 16
--- NOTE | 2024-03-19 14:55 | P.PAINPG ---
PQRS Measure Charge Sheet Comment: A 78 yr old male w at side with a history of severe and chronic LBP secondary to lumbar DDD and spondylosis with facet arthropathy without myelopathy presents today for evaluation. Pain level is provoked at 6 /10 in intensity, predominantly axial, constant, localized in the R lumbar spine, pressure in character w occasional shooting towards the RLE. Pain is provoked by PT in the past without relief, walking for periods of 10 min or more. Pain is alleviated with physician guided home stretches daily since Sep 2022, injections, medications, topicals, repositioning and rest. Oswestry axial score of 23. Interventional pain procedures completed include KAILASH L4-L5 x3 (Sep 2022) Patient is currently on Excedrin, Tyl Patient denies any side effects of the medication(s), denies excessive drowsiness or sleepiness, denies suicidal ideation and reports that the current pain medication is helping to control the pain and improve activities of daily living. Patient denies any motor or sensory deficits. Patient denies any fever or night sweats, denies any change in the bowel movements or urination. Physical Examination: -Constitutional: Cooperative. Not in acute distress . - Neurologic: Cranial nerve II to XII intact. No focal neurological deficits. - Psychatric: Alert & oriented x 3. Matching mood & appropriate affect. Judgment and insight intact. - Musculoskeletal: Cervical spine: Muscle bulk/ tone/ strength in the bilateral upper extremities normal Vertebral body tenderness to palpation over Spurling test positive Distraction test positive Facet loading test positive Thoracic spine Muscle bulk / tone/ strength in the bilateral paraspinal muscles normal Vertebral body tender to palpation over Facet loading test positive Lumbar spine: Motor bulk/ tone/ strength lower extremities , thigh and legs : 5/5 Deep tendon reflexes : Normal Knee Jerk. Normal Ankle Jerk . Vertebral body tenderness to palpation over L5 Lumbar Facet Loading Test positive Straight Leg Raise: positive at 30 degrees right side/ left side Gaenslen's Test positive Sacral spine : Severe tenderness over the Sacroiliac joint: right side / left side Range of motion: Flexion of the lumbar spine <60 degrees Range of motion: Extension of the lumbar spine <20 degrees Gaenslen's Test positive Luigi test: positive right side / left side Thigh Thrust Test Sacral Thrust Test Imaging: MRI non contrast of the lumbar spine from 05/16/22 reviewed Assessment and plan: Chronic LBP secondary to lumbar DDD, spondylosis with facet arthropathy without myelopathy Recommendation of KAILASH L5-S1 #1. May need a series of injectinos for optimal pain relief. Risks, benefits of procedure discussed and pt verbalized understanding. Protocol for discontinuation/ continuation of medications per procedure discussed. All patient questions answered I have spent less than 30 minutes on patient care today. Dr Benítez was available by phone for the evaluation of this patient. The time was used to review the medical records including relevant urine studies and Prescription history (MAPs), review of the available imaging, evaluation and examination of the patient, coordination of care with the medical staff and if applicable referring physicians, as well as creation of the medical record - Pain Location Right Lower Back Pharmacological Interventions: PRN Medication PQRS Narrative: Smoking Status Former smoker Hx Alcohol Use (MH) No Home Medications: Ambulatory Orders Aspirin EC [Ecotrin Low Dose] 81 mg PO DAILY #30 tablet. 08/11/15 Metoprolol Tartrate [Lopressor] 50 mg PO BID #60 tab 08/11/15 Atorvastatin [Lipitor] 40 mg PO HS 06/29/22 amLODIPine [Norvasc] 10 mg PO DAILY 06/29/22 calcitrioL 0.25 mcg PO MOWE 06/29/22 hydrALAZINE HCL 25 mg PO TID 06/29/22 hydroCHLOROthiazide 25 mg PO DAILY 06/29/22 Losartan [Cozaar] 25 mg PO DAILY 07/10/22 Albuterol Inhaler [Ventolin Hfa Inhaler] 2 puff INHALATION RT-Q4H PRN 11/10/22 Ipratropium-Albuterol Nebulize [Duoneb 0.5 mg-3 mg/3 ml Soln] 3 ml INHALATION RT-Q6H PRN 11/10/22 Latanoprost [Latanoprost 0.005%] 1 drop BOTH EYES DAILY 11/10/22 Mirtazapine 30 mg PO HS 11/10/22 diazePAM [Valium] 5 mg PO DAILY PRN 1 Days #2 tab 03/19/24 Controlled Substance Measures - Controlled Substance Measures Is patient prescribed a controlled substance at discharge?: Yes When asked, does pt state using other controlled substances?: Yes If prescribed controlled substance>3 days was MAPS reviewed?: Prescribed <3 Days
== END ==
LOC: PNWHC3 13:39
PROVIDERS: ATTEND Specialist
DX: M48.061 Spinal stenosis, lumbar region without neurogenic claudication (principal); M47.816 Spondylosis without myelopathy or radiculopathy, lumbar region; M51.26 Other intervertebral disc displacement, lumbar region; Z87.891 Personal history of nicotine dependence; Z88.5 Allergy status to narcotic agent
CPT/HCPCS: 99211

== ENCOUNTER → 2024-04-24 | Day surgery (SDC) | payer MEDICARE, BC ==
[2024-04-22 15:54] VITALS: BMI 25.0
[~2024-04-24] MED LIST changes: +ACETAMINOPHEN TAB 325 MG TAB PO PRN; +ATROPINE SULFATE 0.4 MG/ML 1 ML VIAL ONE; +GLYCOPYRROLATE 0.2 MG/ML 2 ML VIAL ONE; +LIDOCAINE 1% INJ 10MG/ML (20 ML MDV) ONE; +MIDAZOLAM 2 MG/2 ML VIAL ONE; +NALOXONE 0.4 MG/ML 1 ML VIAL IV PRN; +NEOSTIGMINE 1 MG/ML 10 ML VIAL ONE; +PROPOFOL 10 MG/ML 20 ML VIAL IV ONE; +ROCURONIUM 10 MG/ML (5 ML VIAL) IV ONE; +SUCCINYLCHOLINE CHLORIDE 200 MG/10 ML VIAL IV ONE; +ePHEDrine 50 MG/ML 1 ML VIAL ONE; +fentaNYL (PF) 50 MCG/ML 2 ML AMP IV PRN; +fentaNYL (PF) 50 MCG/ML 2 ML AMP ONE; +traMADol 50 MG TAB PO PRN
[2024-04-24] MEDS: IV FLUID CONTINUATION 1,000 ML IV ONE (09:24)
[2024-04-24 10:06] LABS: Basophils % (A) 0 %; Eosinophils # (A) 0.3 k/uL (0-0.7); Eosinophils % (A) 5 %; HCT 27.8 % (39.0-53.0); HGB 8.7 gm/dL (13.0-17.5); Hypochromasia Marked; Lymphocytes # (A) 0.7 k/uL (1.0-4.8); Lymphocytes % (A) 10 %; MCH 29.1 pg (25.0-35.0); MCHC 31.3 g/dL (31.0-37.0); MCV 92.9 fL (80.0-100.0); Mean Platelet Volume 8.3; Monocytes # (A) 0.5 k/uL (0-1.0); Monocytes % (A) 7 %; Neutrophils # (A) 5.6 k/uL (1.3-7.7); Neutrophils % (A) 77 %; Platelet Count 161 k/uL (150-450); RBC 2.99 m/uL (4.30-5.90); WBC 7.3 k/uL (3.8-10.6)
[2024-04-24] MEDS: HEPARIN SODIUM,PORCINE 5,000 UNIT/ML 1 ML VIAL SQ PRN (10:24)
[2024-04-24] MEDS: ACETAMINOPHEN TAB 500 MG TAB PO PRN (10:24)
[2024-04-24] MEDS: ONDANSETRON 4 MG/2 ML VIAL IVP ONE (10:24)
[2024-04-24] MEDS: DEXAMETHASONE SOD PHOSPHATE 4 MG/ML 1 ML VIAL IVP STA (10:25)
[2024-04-24 10:28] LABS: African American GFR (CKD) 8 (>60 ml/min/1.73 sqM); Anion Gap 9 mmol/L; Blood Urea Nitrogen 73 mg/dL (9-20); Calcium 8.1 mg/dL (8.4-10.2); Carbon Dioxide 18 mmol/L (22-30); Chloride 116 mmol/L (98-107); Glucose 82 mg/dL (74-99); Non-African American GFR(CKD) 7 (>60 ml/min/1.73 sqM); Potassium 4.1 mmol/L (3.5-5.1); Sodium 143 mmol/L (137-145)
[2024-04-24] MEDS: BUPIVACAINE (PF) 0.25% 30 ML VIAL SQ ONE ×3 (11:00→11:57)
[2024-04-24] MEDS: MINERAL OIL 1 APPLIC/ML OIL TOPICAL ONE (11:47)
[2024-04-24 12:29] VITALS: TEMP 98.2
--- NOTE | 2024-04-24 12:31 | P.OP ---
Date of Procedure: 04/24/24 Procedure(s) Performed: PREOPERATIVE DIAGNOSIS: Renal failure POSTOPERATIVE DIAGNOSIS: Same PROCEDURE: Peritoneal dialysis catheter insertion, laparoscopic lysis of adhesions SURGEON: Denise EBL: Minimal ANESTHESIA: General COMPLICATIONS: None OPERATIVE PROCEDURE: The patient was placed in the operative table in the supine position. The abdomen was prepped and draped in usual sterile fashion. A small vertical incision was made in the right periumbilical location. Dissection down through the subcutaneous tissues took place using electrocautery. The anterior rectus was divided vertically using the scalpel. The rectus was bluntly. The posterior rectus was visualized. An 0 Vicryl pursestring was placed. A small opening in the posterior rectus fascia and peritoneum took place using a Metzenbaum scissors. There were fatty adhesions to the peritoneal surface. Blunt dissection confirmed that these were present circumferentially. At that time a 5 mm trocar was used to enter the peritoneal cavity in the left upper quadrant. Insufflation took place to 15 mm. 2 additional 5 mm trocars were placed in the epigastric region and right upper quadrant. Using the LigaSure the patient was noted to have adhesions between the fat and the abdominal wall that were lysed using the LigaSure. Some more dense adhesions in the left lower quadrant lateral and inferior to the umbilical region were seen between the small bowel and the peritoneal surface. These were fairly dense and did not appear to be easily amenable to adhesiolysis. We had adequate space around the catheter entrance site at this point. The pigtail catheter was advanced into the pelvis over a stylette. This was visualized laparoscopically. The catheter tip was seen in the midline pelvis. The inner cuff was secured to the fascia using the 0 Vicryl pursestring that was placed. Pneumoperitoneum had been evacuated at this point. The catheter was tunneled to an exit site in the right lateral lower quadrant. The catheter was connected to the 1 L bag of saline and approximated 800 mL of saline was easily introduced into the peritoneal cavity. The fluid was then allowed to evacuate. The fluid had a slight blood-tinged which is not unexpected given the lysis of adhesions. The majority of the fluid was returned. The anterior rectus fascia was then reapproximated using a running 0 Vicryl stitch. The subcutaneous tissues reprepped using 3-0 Vicryl sutures and the skin using 4-0 Monocryl sutures. The skin at the laparoscopic sites also closed using 4-0 Monocryl sutures and skin glue. The outpatient dialysis adapter was applied to the end of the catheter. Sterile dressings were then applied after skin glue was placed over the incision. DISPOSITION: Stable to recovery room
[2024-04-24 14:19] VITALS: BP 123/62; PULSE 57; RESP 16
== END ==
LOC: OR 09:05
PROVIDERS: ATTEND Surgery
DX: N18.6 End stage renal disease (principal); I25.10 Atherosclerotic heart disease of native coronary artery without angina pectoris; I10 Essential (primary) hypertension; E78.5 Hyperlipidemia, unspecified; F41.9 Anxiety disorder, unspecified; M19.90 Unspecified osteoarthritis, unspecified site; J44.9 Chronic obstructive pulmonary disease, unspecified; E03.9 Hypothyroidism, unspecified; Z95.5 Presence of coronary angioplasty implant and graft; Z79.82 Long term (current) use of aspirin; Z79.51 Long term (current) use of inhaled steroids; Z79.890 Hormone replacement therapy; Z79.899 Other long term (current) drug therapy; Z88.5 Allergy status to narcotic agent; Z88.8 Allergy status to other drugs, medicaments and biological substances; Z98.890 Other specified postprocedural states
CPT/HCPCS: 80048; 85025; 49324; J1644; J1100; J0690; J2405; J0665

== ENCOUNTER 2025-01-16 11:53 | Emergency (ER) | payer MEDICARE, BC ==
--- NOTE | 2025-01-16 12:20 | ED ---
General Adult HPI - General Chief complaint: Shortness of Breath Stated complaint: SOB Time Seen by Provider: 01/16/25 12:05 Source: patient, family, RN notes reviewed Mode of arrival: ambulatory Limitations: no limitations - History of Present Illness Initial comments: Patient is an 79-year-old male present to the emergency department with concerns with difficulty in breathing. Onset of symptoms was around 3 weeks ago. Patient does have cough and chest congestion. No fever. Patient has fatigue. No chest pain. Patient is on peritoneal dialysis. No leg edema. Patient still makes rare urine. - Related Data Home Medications Medication Instructions Recorded Confirmed Atorvastatin [Lipitor] 40 mg PO HS 06/29/22 05/21/24 calcitrioL 0.25 mcg PO MOWE 06/29/22 05/21/24 hydrALAZINE HCL 25 mg PO TID 06/29/22 05/21/24 Albuterol Inhaler [Ventolin Hfa 2 puff INHALATION RT-Q4H PRN 11/10/22 05/21/24 Inhaler] Latanoprost [Latanoprost 0.005%] 1 drop BOTH EYES DAILY 11/10/22 05/21/24 Mirtazapine 30 mg PO HS 11/10/22 05/21/24 Isosorbide Mononitrate [Isosorbide 30 mg PO QAM 04/22/24 05/21/24 Mononitrate ER] Levothyroxine Sodium 25 mcg PO QAM 04/22/24 05/21/24 Sodium Zirconium Cyclosilicate 10 gm PO DAILY 04/22/24 05/21/24 [Lokelma] Previous Rx's Medication Instructions Recorded Aspirin EC [Ecotrin Low Dose] 81 mg PO DAILY #30 tablet.dr 08/11/15 Metoprolol Tartrate [Lopressor] 50 mg PO BID #60 tab 08/11/15 traMADol HCl [Ultram] 50 mg PO Q6H PRN #7 tab 04/24/24 Azithromycin [Zithromax Z Pack] 250 mg PO DAILY #6 tab 01/16/25 predniSONE [Deltasone] 20 mg PO BID #10 tab 01/16/25 Allergies Allergy/AdvReac Type Severity Reaction Status Date / Time amlodipine Allergy Rash/Hives Verified 01/16/25 11:57 hydrocodone Allergy Unknown Verified 01/16/25 11:57 Review of Systems ROS Statement: Those systems with pertinent positive or pertinent negative responses have been documented in the HPI. ROS Other: All systems not noted in ROS Statement are negative. Constitutional: Denies: fever, chills Eyes: Denies: eye pain ENT: Reports: congestion. Denies: ear pain Respiratory: Reports: cough, dyspnea Cardiovascular: Denies: chest pain Endocrine: Reports: fatigue Gastrointestinal: Denies: abdominal pain Musculoskeletal: Denies: back pain Past Medical History Past Medical History: Coronary Artery Disease (CAD), Cancer, COPD, Hyperlipidemia, Hypertension, Osteoarthritis (OA), Prostate Disorder, Renal Disease, Thyroid Disorder Additional Past Medical History / Comment(s): "Dr watching left retina." Enlarged prostate. Stage 5 kidney disease. Hx colon cancer with surgery, arthritis bilateral wrists, hand, back pain, "spot on lung" pt thinks R lung that Dr. Giordano is watching, sinus problems, 4 bulging cervical discs, bilateral occasional tingling in hands, L arm decreased muscle tone and strength. History of Any Multi-Drug Resistant Organisms: None Reported Past Surgical History: Bowel Resection, Coronary Bypass/CABG, Heart Catheterization, Joint Replacement, Tonsillectomy Additional Past Surgical History / Comment(s): Triple bypass 2009, carotid endartectomies bilateral, left hip replacement, colon resection, colonoscopy, cyst removed from tail bone as a child, bilateral cataract removal with lens implants, benign skin lesions removed from face and left arm, vasectomy, circum cism. Past Anesthesia/Blood Transfusion Reactions: No Reported Reaction Additional Past Anesthesia/Blood Transfusion Reaction / Comment(s): No hx blood transfusions. Past Psychological History: Anxiety Smoking Status: Former smoker - Past Family History Father History Unknown: Yes Family Medical History: Unable to Obtain Additional Family Medical History / Comment(s): Pt never knew his father. Mother Family Medical History: No Reported History Additional Family Medical History / Comment(s): Mother was healthy. She in her 70's as a complication of a fall. General Exam Limitations: no limitations General appearance: alert, in no apparent distress Head exam: Present: normocephalic Eye exam: Present: normal appearance Neck exam: Present: normal inspection Respiratory exam: Present: normal lung sounds bilaterally. Absent: respiratory distress, decreased breath sounds Cardiovascular Exam: Present: regular rate, normal rhythm GI/Abdominal exam: Present: soft. Absent: tenderness Extremities exam: Present: normal inspection. Absent: pedal edema, calf tenderness Neurological exam: Present: alert Psychiatric exam: Present: normal affect, normal mood Skin exam: Present: normal color Course Vital Signs 01/16/25 01/16/25 01/16/25 11:55 12:25 12:34 Temperature 97.4 F L Pulse Rate 94 92 96 Respiratory 18 Rate Blood Pressure 117/71 O2 Sat by Pulse 94 L Oximetry 01/16/25 13:30 Temperature Pulse Rate 70 Respiratory 16 Rate Blood Pressure 158/82 O2 Sat by Pulse 96 Oximetry EKG Findings - EKG Results: EKG: interpreted by ERMD (Left axis. Right bundle branch block. First-degree AV block with HI of 202.), sinus rhythm, normal ST/T Medical Decision Making - Medical Decision Making Was pt. sent in by a medical professional or institution (, PA, WORD PROCESSOR OPERATOR, urgent care, hospital, or custodial...) When possible be specific @ -Patient was sent in from urgent care Did you speak to anyone other than the patient for history (EMS, parent, family, police, friend...)? What history was obtained from this source @ - is present helps provide history including onset of symptoms Did you review nursing and triage notes (agree or disagree)? Why? @ -I reviewed and agree with nursing and triage notes Were old charts reviewed (outside hosp., previous admission, EMS record, old EKG, old radiological studies, urgent care reports/EKG's, custodial records)? Report findings @ -No old charts were reviewed Differential Diagnosis (chest pain, altered mental status, abdominal pain women, abdominal pain men, vaginal bleeding, weakness, fever, dyspnea, syncope, headache, dizziness, GI bleed, back pain, seizure, CVA, palpatations, mental health, musculoskeletal)? @ -Differential Dyspnea: Coronary syndrome, arrhythmia, tamponade, asthma, COPD, pulmonary embolism, pneumonia, pneumothorax, pulmonary effusion, anaphylaxis, diabetic ketoacidosis, flailed chest, pulmonary contusion, diaphragmatic rupture, anemia, neuromuscular, this is not meant to be an all-inclusive list. EKG interpreted by me (3pts min.). @ -As above X-rays interpreted by me (1pt min.). @ -Chest x-ray shows chronic changes, no acute process CT interpreted by me (1pt min.). @ -None done U/S interpreted by me (1pt. min.). @ -None done What testing was considered but not performed or refused? (CT, X-rays, U/S, labs)? Why? @ -None What meds were considered but not given or refused? Why? @ -None Did you discuss the management of the patient with other professionals (professionals i.e. Dr., PA, WORD PROCESSOR OPERATOR, lab, RT, psych nurse, social services manager, dining room manager, teacher, retirement officer, patient case coordinator)? Give summary @ -No Was smoking cessation discussed for >3mins.? @ -No Was critical care preformed (if so, how long)? @ -No Were there social determinants of health that impacted care today? How? (Homelessness, low income, unemployed, alcoholism, drug addiction, transportation, low edu. Level, literacy, decrease access to med. care, [facility], rehab)? @ -No Was there de-escalation of care discussed even if they declined (Discuss DNR or withdrawal of care, Hospice)? DNR status @ -No What co-morbidities impacted this encounter? (DM, HTN, Smoking, COPD, CAD, Cancer, CVA, ARF, Chemo, Hep., AIDS, mental health diagnosis, sleep apnea, morbid obesity)? @ -History of COPD Was patient admitted / discharged? Hospital course, mention meds given and route, prescriptions, significant lab abnormalities, going to OR and other pertinent info. @ -Patient presents with cough and congestion. Emergency department evaluation unremarkable. Patient reevaluated resting comfortably in bed, vital signs stable. Patient will be discharged with antibiotics and steroids and recommended close follow-up with primary care physician. Return parameters discussed Undiagnosed new problem with uncertain prognosis? @ -No Drug Therapy requiring intensive monitoring for toxicity (Heparin, Nitro, Insulin, Cardizem)? @ -No Were any procedures done? @ -No Diagnosis/symptom? @ -COPD Acute, or Chronic, or Acute on Chronic? @ -Acute Uncomplicated (without systemic symptoms) or Complicated (systemic symptoms)? @ -Default Side effects of treatment? @ -No Exacerbation, Progression, or Severe Exacerbation? @ -Exacerbation Poses a threat to life or bodily function? How? (Chest pain, USA, VT, pneumonia, PE, COPD, DKA, ARF, appy, cholecystitis, CVA, Diverticulitis, Homicidal, Suicidal, threat to staff... and all critical care pts) @ -No - Lab Data Result diagrams: 01/16/25 12:31 01/16/25 12:31 Lab Results 01/16/25 01/16/25 01/16/25 Range/Units 12:31 12:31 12:31 WBC 8.35 (4.50-10.00) 10*3/uL RBC 3.63 L (4.40-5.60) 10*6/uL Hgb 11.1 L (13.0-17.0) g/dL Hct 33.9 L (39.6-50.0) % MCV 93.4 (80.0-97.0) fL MCH 30.6 (27.0-32.0) pg MCHC 32.7 (32.0-37.0) g/dL Plt Count 177 (140-440) 10*3/uL MPV 10.0 (9.5-12.2) fL Immature Gran % (Auto) 0.4 % Neutrophils % 78.4 % Lymphocytes % 7.8 % Monocytes % 9.6 % Eosinophils % 3.6 % Basophils % 0.2 % Immature Gran # 0.03 (0.00-0.04) 10*3/uL Neutrophils # 6.55 (1.80-7.70) 10*3/uL Lymphocytes # 0.65 L (0.90-5.00) 10*3/uL Monocytes # 0.80 (0.20-1.00) 10*3/uL Eosinophils # 0.30 (0.04-0.35) 10*3/uL Basophils # 0.02 (0.00-0.10) 10*3/uL PT 11.5 (10.0-12.5) sec INR 1.0 (<1.2) APTT 24.4 (22.0-30.0) sec Sodium 137 (137-145) mmol/L Potassium 3.7 (3.5-5.1) mmol/L Chloride 93 L (98-107) mmol/L Carbon Dioxide 23 (22-30) mmol/L Anion Gap 21 mmol/L BUN 94 H (9-20) mg/dL Creatinine 9.39 H* (0.66-1.25) mg/dL Est GFR (CKD-EPI)AfAm 5 (>60 ml/min/1.73 sqM) Est GFR (CKD-EPI)NonAf 5 (>60 ml/min/1.73 sqM) Glucose 100 H (74-99) mg/dL Plasma Lactic Acid Bobby (0.7-2.0) mmol/L Calcium 8.6 (8.4-10.2) mg/dL Magnesium 1.9 (1.6-2.3) mg/dL Total Bilirubin 0.6 (0.2-1.3) mg/dL AST 22 (17-59) U/L ALT 23 (4-49) U/L Alkaline Phosphatase 87 (38-126) U/L Troponin I (0.000-0.034) ng/mL NT-Pro-B Natriuret Pep 3410 pg/mL Total Protein 6.2 L (6.3-8.2) g/dL Albumin 3.5 (3.5-5.0) g/dL Influenza Type A (PCR) (Not Detectd) Influenza Type B (PCR) (Not Detectd) RSV (PCR) (Not Detectd) SARS-CoV-2 (PCR) (Not Detectd) 01/16/25 01/16/25 01/16/25 Range/Units 12:31 12:31 12:31 WBC (4.50-10.00) 10*3/uL RBC (4.40-5.60) 10*6/uL Hgb (13.0-17.0) g/dL Hct (39.6-50.0) % MCV (80.0-97.0) fL MCH (27.0-32.0) pg MCHC (32.0-37.0) g/dL Plt Count (140-440) 10*3/uL MPV (9.5-12.2) fL Immature Gran % (Auto) % Neutrophils % % Lymphocytes % % Monocytes % % Eosinophils % % Basophils % % Immature Gran # (0.00-0.04) 10*3/uL Neutrophils # (1.80-7.70) 10*3/uL Lymphocytes # (0.90-5.00) 10*3/uL Monocytes # (0.20-1.00) 10*3/uL Eosinophils # (0.04-0.35) 10*3/uL Basophils # (0.00-0.10) 10*3/uL PT (10.0-12.5) sec INR (<1.2) APTT (22.0-30.0) sec Sodium (137-145) mmol/L Potassium (3.5-5.1) mmol/L Chloride (98-107) mmol/L Carbon Dioxide (22-30) mmol/L Anion Gap mmol/L BUN (9-20) mg/dL Creatinine (0.66-1.25) mg/dL Est GFR (CKD-EPI)AfAm (>60 ml/min/1.73 sqM) Est GFR (CKD-EPI)NonAf (>60 ml/min/1.73 sqM) Glucose (74-99) mg/dL Plasma Lactic Acid Bobby 0.9 (0.7-2.0) mmol/L Calcium (8.4-10.2) mg/dL Magnesium (1.6-2.3) mg/dL Total Bilirubin (0.2-1.3) mg/dL AST (17-59) U/L ALT (4-49) U/L Alkaline Phosphatase (38-126) U/L Troponin I 0.013 (0.000-0.034) ng/mL NT-Pro-B Natriuret Pep pg/mL Total Protein (6.3-8.2) g/dL Albumin (3.5-5.0) g/dL Influenza Type A (PCR) Not Detected (Not Detectd) Influenza Type B (PCR) Not Detected (Not Detectd) RSV (PCR) Not Detected (Not Detectd) SARS-CoV-2 (PCR) Not Detected (Not Detectd) Disposition Clinical Impression: COPD (chronic obstructive pulmonary disease) Disposition: HOME SELF-CARE Condition: Stable Instructions (If sedation given, give patient instructions): COPD (Chronic Obstructive Pulmonary Disease) (ED) Additional Instructions: Prescriptions have been sent to pharmacy. Please do follow-up with your primary care physician beginning the week. Return for difficulty breathing, fevers, swelling, worsening or changing symptoms or any other concerns. Prescriptions: predniSONE [Deltasone] 20 mg PO BID #10 tab Azithromycin [Zithromax Z Pack] 250 mg PO DAILY #6 tab Is patient prescribed a controlled substance at d/c from ED?: No Referrals: Rajeev Hummel MD [Primary Care Provider] - 1-2 days Time of Disposition: 13:46
[2025-01-16] MEDS: IPRATROPIUM-ALBUTEROL 3 ML NEB INHALATION STA (12:24)
[2025-01-16 12:37] LABS: Basophils # (A) 0.02 10*3/uL (0.00-0.10); Basophils % (A) 0.2 %; Eosinophils % (A) 3.6 %; HCT 33.9 % (39.6-50.0); HGB 11.1 g/dL (13.0-17.0); Lymphocytes # (A) 0.65 10*3/uL (0.90-5.00); Lymphocytes % (A) 7.8 %; MCH 30.6 pg (27.0-32.0); MCHC 32.7 g/dL (32.0-37.0); MCV 93.4 fL (80.0-97.0); Monocytes % (A) 9.6 %; Neutrophils # (A) 6.55 10*3/uL (1.80-7.70); Neutrophils % (A) 78.4 %; Platelet Count 177 10*3/uL (140-440); RBC 3.63 10*6/uL (4.40-5.60); RDW 15.1 % (11.5-14.5); WBC 8.35 10*3/uL (4.50-10.00)
[2025-01-16 12:46] LABS: Partial Thromboplastin Time 24.4 sec (22.0-30.0); Prothrombin Time 11.5 sec (10.0-12.5)
--- NOTE | 2025-01-16 12:55 | XR ---
EXAMINATION TYPE: XR chest 2V DATE OF EXAM: 01/16/2025 12:51 PM COMPARISON: Chest radiographs from 08/20/2023 TECHNIQUE: XR chest 2V Frontal and lateral views of the chest. CLINICAL INDICATION:Male, 79 years old with history of difficulty breathing; FINDINGS: Lungs/Pleura: There is no evidence of pleural effusion, focal consolidation, or pneumothorax. Chroni c elevation left hemidiaphragm. Hyperinflation. Chronic senescent parenchymal change. Pulmonary vascularity: Unremarkable. Heart/mediastinum: Cardiomediastinal silhouette is stable. Atherosclerotic calcifications are seen i n the aorta. Musculoskeletal: Multiple level degenerative disc disease changes seen throughout the spine. Midline sternotomy wires are noted and stable. IMPRESSION: 1. No acute cardiopulmonary disease/process. 2. COPD changes with chronic elevation of the left hemidiaphragm. [facility], , 01/16/2025 12:52 PM
[2025-01-16 13:07] LABS: ALT 23 U/L (4-49); AST 22 U/L (17-59); African American GFR (CKD) 5 (>60 ml/min/1.73 sqM); Albumin 3.5 g/dL (3.5-5.0); Alkaline Phosphatase 87 U/L (38-126); Anion Gap 21 mmol/L; Blood Urea Nitrogen 94 mg/dL (9-20); Calcium 8.6 mg/dL (8.4-10.2); Carbon Dioxide 23 mmol/L (22-30); Chloride 93 mmol/L (98-107); Glucose 100 mg/dL (74-99); Magnesium 1.9 mg/dL (1.6-2.3); Non-African American GFR(CKD) 5 (>60 ml/min/1.73 sqM); Potassium 3.7 mmol/L (3.5-5.1); Sodium 137 mmol/L (137-145); Total Bilirubin 0.6 mg/dL (0.2-1.3); Total Protein 6.2 g/dL (6.3-8.2)
[2025-01-16 13:12] LABS: Influenza A Not Detected (Not Detectd); Influenza B Not Detected (Not Detectd); RSV Not Detected (Not Detectd)
[2025-01-16 13:16] LABS: NT-Pro-B-Type Natriuretic Pept 3410 pg/mL
[2025-01-16 13:31] VITALS: BP 158/82; PULSE 70; RESP 16
[2025-01-16 13:51] VITALS: TEMP 98.1
== END 2025-01-16 13:58 | disposition home or self-care (01) ==
LOC: EC 11:53
DX: J44.9 Chronic obstructive pulmonary disease, unspecified (principal); Z99.2 Dependence on renal dialysis; Z11.52 Encounter for screening for COVID-19; Z87.891 Personal history of nicotine dependence; Z88.5 Allergy status to narcotic agent; Z88.8 Allergy status to other drugs, medicaments and biological substances
CPT/HCPCS: 36415; 71046; 80053; 83605; 83735; 83880; 84484; 85025; 85610; 85730; 87636; 93005; 94640; 99285

== ENCOUNTER → 2025-03-13 | Outpatient (CLI) | payer MEDICARE, BC ==
--- NOTE | 2025-03-13 20:08 | MR ---
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 COMPARISONS: MRI lumbar spine 05/16/2022. TECHNIQUE: Multi planar, multi sequence imaging was performed utilizing: T1-weighted, T2-weighted, a nd turbo inversion recovery imaging of the lumbar spine. The patient was not given contrast. FINDINGS: The lumbar vertebral bodies do have preserved heights. Similar grade 1 anterolisthesis of L4 on L5 without pars defects. Multilevel anterior osteophytosis. New acute Schmorl's node with incre ased STIR signal within the inferior endplate of the L1 vertebral body and superior endplate of the L 3 vertebral body. There is corresponding low T1 signal. Multilevel disc desiccation is present. The conus medullaris and the distal spinal cord do appear unremarkable with regards to their signal inten sity and morphology. Susceptibility artifact from left hip prosthesis demonstrated. Subcutaneous mary a of the back. T12-L1: No disc herniation. No significant spinal canal or neural foraminal stenosis. L1-L2: Broad-based disc bulge without significant spinal canal stenosis. No significant neural tennille inal stenosis. L2-L3: Broad-based disc bulge resulting in mild central canal stenosis and close approximation of th e bilateral nerve roots. Mild bilateral neural foraminal stenosis. L3-L4: Broad-based disc bulge with ligamentum flavum buckling and bilateral facet arthropathy. There is mild spinal canal stenosis. Mild right and moderate left neural foraminal stenosis. L4-L5: Grade 1 anterolisthesis with uncovering of the disc. Broad-based disc bulge with bilateral fac et arthropathy and ligamentum buckling. Results in mild spinal canal stenosis. Moderate bilateral jany ral foraminal stenosis. L5-S1: Small central disc herniation superimposed upon a broad-based disc bulge without significant s [place] canal stenosis. Bilateral facet arthropathy. Moderate severe bilateral neural foraminal stenosi s. Other significant findings: Bilateral renal cortical atrophy suggesting chronic medical renal disease . Increased aneurysmal dilatation of the abdominal aorta at the hiatus measuring up to 3.4 cm, previo usly 3.2 cm. 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 Increase aneurysm dilatation of the right common iliac artery measuring up to 2.6 cm, pre viously 2.2 cm. IMPRESSION: 1. Similar moderate multilevel disc degeneration with associated osteoarthritic changes as described above. 2. Grade 1 anterolisthesis of L4 on L5 without evidence of pars defects. 3. Marginal increase in size of abdominal aortic aneurysm at the hiatus and of the mid abdominal aor ta. 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 [facility], , 03/13/2025 8:05 PM
== END | disposition home or self-care (01) ==
LOC: RADMRIMAIN 17:30
PROVIDERS: ATTEND Internal Medicine
DX: M51.369 Other intervertebral disc degeneration, lumbar region without mention of lumbar back pain or lower extremity pain (principal); M47.816 Spondylosis without myelopathy or radiculopathy, lumbar region; M43.16 Spondylolisthesis, lumbar region; I71.40 Abdominal aortic aneurysm, without rupture, unspecified; I72.3 Aneurysm of iliac artery
CPT/HCPCS: 72148